=== PATIENT | male | born 1955 | race Caucasian/White ===

== ENCOUNTER 2024-07-30 13:46 | Emergency (ER) | payer OTHER ==
[~2024-07-30] VITALS: Ht 195.6 cm; Wt 85.3 kg
[2024-07-30] MEDS ORDERED: TRIAMCINOLONE ACETONIDE 40 MG/ML VIAL IM STA (15:00)
== END 2024-07-30 15:57 | disposition home or self-care (01) ==
LOC: ER 13:48
DX: J30.9 Allergic rhinitis, unspecified (principal)
CPT/HCPCS: 96372; 99282; J3301